=== PATIENT | female | born 1950 | race Caucasian/White ===

== ENCOUNTER 2017-04-16 10:04 | Emergency (ER) | payer MEDICARE, OTHER ==
[2017-04-16 10:15] VITALS: BP 159/94
[2017-04-16] MEDS ORDERED: Albuterol/Ipratropium 3.0-0.5 MG/3 ML Neb Soln NEB ONE (10:32)
--- NOTE | 2017-04-16 10:35 | EDM.PDOC ---
ED HPI GENERAL MEDICAL PROBLEM - General Chief Complaint: Respiratory Problem Stated Complaint: FLU SX Time Seen by Provider: 04/16/17 10:24 Source of Information: Reports: Patient, RN Notes Reviewed - History of Present Illness INITIAL COMMENTS - FREE TEXT/NARRATIVE: 66-year-old female comes in with cough, difficulty breathing. She does have history of COPD. She does smoke. She first became ill about 2 weeks ago his cough congestion sore throat. The cough is continued and is currently productive of colored phlegm. No current fever. She still does have some nasal and sinus congestion as well. She currently is on prednisone 20 mg twice a day. Chest Pain Score (Numeric/FACES): 9 - Related Data Allergies Allergy/AdvReac Type Severity Reaction Status Date / Time celecoxib [From Celebrex] Allergy Itching Verified 01/03/15 13:08 cephalexin monohydrate Allergy Hives Verified 01/03/15 13:08 [From Keflex] Penicillins Allergy Seizure Verified 01/03/15 13:08 Home Meds: Home Meds Acetaminophen with Codeine [Tylenol with Codeine #3 Tablet] 1 tab PO ASDIRECTED PRN 06/01/14 [History] Aspirin [Children's Aspirin] 81 mg PO DAILY 06/01/14 [History] predniSONE [Prednisone] 2 tab PO BID 06/01/14 [History] Acetaminophen with Codeine [Tylenol with Codeine #3 Tablet] 1 each PO Q8HR PRN # 14 tablet 04/16/17 [Rx] Doxycycline [Vibramycin] 100 mg PO BID #20 tab 04/16/17 [Rx] LORazepam 0.5 mg PO DAILY 04/16/17 [History] Metoprolol Tartrate 25 mg PO BID 04/16/17 [History] Past Medical History Other HEENT History: uses reading glasses Cardiovascular History: Reports: Hypertension Other Cardiovascular History: currently monitoring HTN--not on meds Respiratory History: Reports: Asthma, COPD Neurological History: Reports: Migraines Hematologic History: Reports: Blood Transfusion(s) Other Oncologic History: had "sore" removed from L) breast and was told it was cancerous, later found out it was not cancer. - Past Surgical History GI Surgical History: Reports: Appendectomy, Cholecystectomy Female Surgical History: Reports: Hysterectomy Other Musculoskeletal Surgeries/Procedures:: carparal tunnel surgery Social & Family History - Family History Family Medical History: Noncontributory - Tobacco Use Smoking Status *Q: Current Every Day Smoker Years of Tobacco use: 41 Packs/Tins Daily: 0.5 - Caffeine Use Caffeine Use: Reports: Coffee, Soda - Alcohol Use Days Per Week of Alcohol Use: 0 - Recreational Drug Use Recreational Drug Use: No ED ROS GENERAL - Review of Systems Review Of Systems: See Below Constitutional: Reports: Fever (No current fever), Chills HEENT: Reports: Rhinitis, Sinus Problem (Continue nasal and sinus congestion and drainage), Throat Pain Respiratory: Reports: Shortness of Breath (Chronically), Pleuritic Chest Pain, Cough, Sputum Cardiovascular: Reports: Chest Pain (Colored with coughing) GI/Abdominal: Denies: Abdominal Pain, Diarrhea, Vomiting Musculoskeletal: Reports: No Symptoms Skin: Reports: No Symptoms Neurological: Reports: No Symptoms ED EXAM, GENERAL - Physical Exam Exam: See Below General Appearance: Alert, Mild Distress Eye Exam: Bilateral Eye: PERRL Throat/Mouth: Normal Inspection Head: Atraumatic Neck: Supple, Full Range of Motion Respiratory/Chest: No Respiratory Distress, Lungs Clear, Normal Breath Sounds Cardiovascular: Regular Rate, Rhythm GI/Abdominal: Soft, Non-Tender Back Exam: No: CVA Tenderness (L), CVA Tenderness (R) Extremities: Normal Inspection, Normal Range of Motion Neurological: Alert, Oriented, No Motor/Sensory Deficits Skin Exam: Warm, Dry, Normal Color Course - Vital Signs Last Recorded V/S: Last Vital Signs Temp 97.1 F 04/16/17 10:11 Pulse 76 04/16/17 10:11 Resp 18 04/16/17 10:11 BP 159/94 H 04/16/17 10:11 Pulse Ox 91 L 04/16/17 10:32 - Orders/Labs/Meds Orders: Active Orders 24 hr Category Date Time Status RT Aerosol Therapy [RC] ASDIRECTED Care 04/16/17 10:32 Active Meds: Medications Discontinued Medications Generic Name Dose Route Start Last Admin Trade Name Freq PRN Reason Stop Dose Admin Albuterol/Ipratropium 3 ml 04/16/17 10:32 04/16/17 10:50 Duoneb 3.0-0.5 Mg/3 Ml NEB 04/16/17 10:33 3 ml ONETIME ONE Administration - Re-Assessments/Exams Free Text/Narrative Re-Assessment/Exam: 04/16/17 12:14. Chest x-ray looks fine. We'll start on doxycycline 100 mg twice a day. Discharge instructions as documented. Departure - Departure Time of Disposition: 11:17 Disposition: Home, Self-Care 01 Condition: Fair Clinical Impression: COPD exacerbation - Discharge Information Prescriptions: Acetaminophen with Codeine [Tylenol with Codeine #3 Tablet] 1 each PO Q8HR PRN # 14 tablet PRN Reason: Cough Doxycycline [Vibramycin] 100 mg PO BID #20 tab Instructions: Chronic Obstructive Pulmonary Disease Exacerbation, [id number] Referrals: Francis Yeung Jr, MD [Primary Care Provider] - Forms: ED Department Discharge Additional Instructions: Work hard to stop smoking, vaporizer or steam as needed, doxycycline antibiotic 100 mg twice daily for 10 days, Tylenol with codeine if needed for severe cough , see Dr. Yeung early next week as planned - My Orders Last 24 Hours: My Active Orders 04/16/17 10:32 RT Aerosol Therapy [RC] ASDIRECTED - Assessment/Plan Last 24 Hours: My Active Orders 04/16/17 10:32 RT Aerosol Therapy [RC] ASDIRECTED
--- NOTE | 2017-04-16 11:00 | CR ---
Chest: Two views of the chest were obtained. Comparison: Prior chest x-ray of 12/02/14. Heart is enlarged. Pulmonary vessels are mildly congested. Lungs are hyperinflated compatible with emphysematous change. Mild disc space narrowing is scattered within the thoracic spine with minimal endplate osteophytes. Minimal scoliosis is noted. Osteopenia is present. Impression: 1. Cardiomegaly with mild pulmonary vascular congestion. 2. Emphysematous change and other incidental findings. Diagnostic code #3
== END 2017-04-16 11:25 | disposition home or self-care (01) ==
LOC: JD.ED 10:04
DX: J44.1 Chronic obstructive pulmonary disease with (acute) exacerbation (principal); I10 Essential (primary) hypertension; F17.210 Nicotine dependence, cigarettes, uncomplicated; Z79.82 Long term (current) use of aspirin; Z79.899 Other long term (current) drug therapy; Z88.0 Allergy status to penicillin; Z88.1 Allergy status to other antibiotic agents
CPT/HCPCS: 71046; 71046-26; 94640; 99283; 99284-25

== ENCOUNTER 2019-11-05 13:52 | Emergency (ER) | payer MEDICARE, OTHER ==
[2019-11-05] MEDS ORDERED: Sodium Chloride 0.9% 10 ML Syringe FLUSH PRN ×2 (14:27→15:52)
[2019-11-05] MEDS ORDERED: Ondansetron 4 MG/2 ML SDV IVPUSH ONE (14:31)
[2019-11-05] MEDS ORDERED: Sodium Chloride 0.9% 1,000 ML IV STA (14:31)
--- NOTE | 2019-11-05 15:28 | EDM.PDOC ---
<Gavino Contreras - Last Filed: 11/05/19 18:51> ED HPI GENERAL MEDICAL PROBLEM - General Chief Complaint: Abdominal Pain Stated Complaint: ABDOMINAL PAIN Time Seen by Provider: 11/05/19 14:17 - Related Data Allergies Allergy/AdvReac Type Severity Reaction Status Date / Time cephalexin monohydrate Allergy Intermediate Hives Verified 11/05/19 16:13 [From Keflex] celecoxib [From Celebrex] Allergy Mild Itching Verified 11/05/19 16:13 Penicillins AdvReac Severe Seizure Verified 11/05/19 14:15 Home Meds: Home Meds Aspirin [Children's Aspirin] 81 mg PO DAILY 06/01/14 [History] predniSONE [Prednisone] 2 tab PO BID 06/01/14 [History] Acetaminophen with Codeine [Tylenol with Codeine #3 Tablet] 1 each PO Q8HR PRN #14 tablet 04/16/17 [Rx] LORazepam 0.5 mg PO DAILY 04/16/17 [History] Metoprolol Tartrate 25 mg PO BID 04/16/17 [History] Albuterol Sulfate [Proventil Hfa] 2 puff INH ASDIRECTED 11/05/19 [History] Course - Re-Assessments/Exams Free Text/Narrative Re-Assessment/Exam: 11/05/19 17:32. Assumed care about 35 minutes ago form THAD Garvey due to finding of Leaking abd aortic aneurysm. I agree with her hx and exam as documented. Current BP 138/86. Heart rate 64.Hgb 13.6, other labs as documented. Pt states her pain started around noon 5 hrs ago R hip and than started having abd pain radiating to her back. Hx of Htn, and also long standing smoking hx. She likely does have some COPD. She has had 0.5 mg dilaudid IV for pain, pain was quite severe at time of my eval, have ordered another 0.5 mg dilaudid IV. She is requesting to be transferred to [facility]. We have called for the [place] [facility] to come out and it is my understanding that they are expecting to be here in about 45 minutes. 17:50. I visited with Dr Andersen, Vascular Surgeon, [facility] who does accept patient in transfer. They will take her to the [place] ED, Dr Moriah zaman, ED Phys also aware. CT has been pushed to [place]. 11/05/19 18:25. [place] [facility] here, BP about 142/64, 64. Resting more comfortably after 2nd dose dilaudid. 11/05/19 18:52 Departure - Departure Time of Disposition: 17:40 Disposition: DC/Tfer to Acute Hospital 02 Condition: Serious Clinical Impression: Leaking abdominal aortic aneurysm - Discharge Information Referrals: Francis Yeung Jr, MD [Primary Care Provider] - Forms: ED Department Discharge <Madina Hernandez - Last Filed: 11/05/19 19:34> ED HPI GENERAL MEDICAL PROBLEM - General Source of Information: Reports: Patient History Limitations: Reports: No Limitations - History of Present Illness INITIAL COMMENTS - FREE TEXT/NARRATIVE: Patient is a 69-year-old female presenting to the emergency department with complaints of lower abdominal pain, diarrhea, nausea, right low back pain, frequency of urination, and generalized weakness. States symptoms began this morning. Pain began in her right lower quadrant abdomen near her hip, however since that time it is spread to her bilateral lower abdomen. She has had a number of episodes of watery diarrhea. She denies any blood in her stool. She is feeling quite nauseous but denies emesis. She has felt chilled but denies known fever. States last evening she felt well. She c/o of frequency of urination and right low back pain also started this morning. Patient denies a history of diverticulitis. She has had a previous appendectomy and cholecystectomy. Patient does have a history of COPD and continues to smoke a half a pack per day. She denies falling recently, but states she has come close a number of occasions this morning due to her generalized weakness. Lower Abdomen Pain Score (Numeric/FACES): 9 Past Medical History Other HEENT History: uses reading glasses Cardiovascular History: Reports: Hypertension Other Cardiovascular History: currently monitoring HTN--is on metoprolol Respiratory History: Reports: Asthma, COPD Neurological History: Reports: Migraines Psychiatric History: Reports: Anxiety Endocrine/Metabolic History: Reports: Other (See Below) Other Endocrine/Metabolic History: borderline diabetes Hematologic History: Reports: Blood Transfusion(s) Other Oncologic History: had "sore" removed from L) breast and was told it was cancerous, later found out it was not cancer. - Past Surgical History GI Surgical History: Reports: Appendectomy, Cholecystectomy Female Surgical History: Reports: Hysterectomy Other Musculoskeletal Surgeries/Procedures:: carparal tunnel surgery Social & Family History - Family History Family Medical History: Noncontributory - Tobacco Use Smoking Status *Q: Current Every Day Smoker Years of Tobacco use: 50 Packs/Tins Daily: 0.5 - Caffeine Use Caffeine Use: Reports: Coffee, Soda - Recreational Drug Use Recreational Drug Use: No ED ROS GENERAL - Review of Systems Review Of Systems: See Below Constitutional: Reports: Chills, Weakness, Decreased Appetite. Denies: Fever HEENT: Reports: No Symptoms Respiratory: Reports: No Symptoms. Denies: Shortness of Breath, Cough Cardiovascular: Reports: No Symptoms. Denies: Chest Pain, Edema, Lightheadedness, Syncope Endocrine: Reports: No Symptoms GI/Abdominal: Reports: Abdominal Pain (bilateral low abdominal pain), Diarrhea, Nausea. Denies: Vomiting : Reports: No Symptoms Musculoskeletal: Reports: Back Pain (right low back) Skin: Reports: No Symptoms Neurological: Reports: No Symptoms. Denies: Dizziness, Headache Psychiatric: Reports: No Symptoms Hematologic/Lymphatic: Reports: No Symptoms Immunologic: Reports: No Symptoms ED EXAM, GI/ABD - Physical Exam Exam: See Below General Appearance: Alert, WD/WN, No Apparent Distress Respiratory/Chest: No Respiratory Distress, Lungs Clear, Normal Breath Sounds, No Accessory Muscle Use, Chest Non-Tender Cardiovascular: Normal Peripheral Pulses, Regular Rate, Rhythm, No Edema, No Gallop, No JVD, No Murmur, No Rub GI/Abdominal Exam: Normal Bowel Sounds, Soft, No Organomegaly, No Distention, No Abnormal Bruit, No Mass, Pelvis Stable, Tender (RLQ and LLQ tenderness). No: Guarding, Rigid Extremities: Normal Inspection, Normal Range of Motion, Non-Tender, Normal Capillary Refill, No Pedal Edema Neurological: Alert, Oriented, CN II-XII Intact, Normal Cognition, Normal Gait, Normal Reflexes, No Motor/Sensory Deficits Psychiatric: Normal Affect, Normal Mood Skin Exam: Warm, Dry, Intact, Normal Color, No Rash Course - Vital Signs Last Recorded V/S: Last Vital Signs Temp 97.1 F 11/05/19 17:41 Pulse 62 11/05/19 17:46 Resp 16 11/05/19 17:46 BP 138/86 11/05/19 17:46 Pulse Ox 99 11/05/19 17:46 - Orders/Labs/Meds Orders: Active Orders 24 hr Category Date Time Status CULTURE BLOOD [BC] Stat Lab 11/05/19 14:55 Received CULTURE BLOOD [BC] Stat Lab 11/05/19 15:04 Received STOOL CULTURE/SHIGA TOXIN [MREF] Stat Lab 11/05/19 15:10 Received Blood Culture x2 Reflex Set [OM.PC] Stat Oth 11/05/19 14:27 Ordered Peripheral IV Insertion Adult [OM.PC] Stat Oth 11/05/19 14:27 Ordered Labs: Laboratory Tests 11/05/19 11/05/19 11/05/19 Range/Units 14:20 14:20 14:20 WBC 21.17 H (3.98-10.04) K/mm3 RBC 4.63 (3.98-5.22) M/mm3 Hgb 13.6 D (11.2-15.7) gm/dl Hct 43.1 (34.1-44.9) % MCV 93.1 D (79.4-94.8) fl MCH 29.4 (25.6-32.2) pg MCHC 31.6 L (32.2-35.5) g/dl RDW Std Deviation 47.5 H (36.4-46.3) fL Plt Count 181 L (182-369) K/mm3 MPV 11.6 (9.4-12.3) fl Neut % (Auto) 71.0 (34.0-71.1) % Lymph % (Auto) 16.7 L (19.3-51.7) % Grady % (Auto) 11.0 (4.7-12.5) % Eos % (Auto) 0.2 L (0.7-5.8) Baso % (Auto) 0.2 (0.1-1.2) % Neut # (Auto) 15.03 H (1.56-6.13) K/mm3 Lymph # (Auto) 3.54 (1.18-3.74) K/mm3 Grady # (Auto) 2.33 H (0.24-0.36) K/mm3 Eos # (Auto) 0.05 (0.04-0.36) K/mm3 Baso # (Auto) 0.04 (0.01-0.08) K/mm3 Manual Slide Review Abnormal smear Sodium 141 (136-145) mEq/L Potassium 3.9 (3.5-5.1) mEq/L Chloride 103 (98-107) mEq/L Carbon Dioxide 28 (21-32) mEq/L Anion Gap 13.9 (5-15) BUN 11 (7-18) mg/dL Creatinine 1.0 (0.55-1.02) mg/dL Est Cr Clr Drug Dosing 40.07 mL/min Estimated GFR (MDRD) 55 (>60) mL/min BUN/Creatinine Ratio 11.0 L (14-18) Glucose 165 H (80-115) mg/dL Lactic Acid (0.4-2.0) mmol/L Calcium 8.8 (8.5-10.1) mg/dL Magnesium (1.8-2.4) mg/dl Total Bilirubin 0.4 (0.2-1.0) mg/dL AST 13 L (15-37) U/L ALT 11 L (14-59) U/L Alkaline Phosphatase 43 L (46-116) U/L C-Reactive Protein 0.2 (<1.0) mg/dL Total Protein 6.5 (6.4-8.2) g/dl Albumin 3.4 (3.4-5.0) g/dl Globulin 3.1 gm/dL Albumin/Globulin Ratio 1.1 (1-2) Lipase 117 (73-393) U/L Urine Color (Yellow) Urine Appearance (Clear) Urine pH (5.0-8.0) Ur Specific [place] (1.005-1.030) Urine Protein (Negative) Urine Glucose (UA) (Negative) Urine Ketones (Negative) Urine Occult Blood (Negative) Urine Nitrite (Negative) Urine Bilirubin (Negative) Urine Urobilinogen (0.2-1.0) Ur Leukocyte Esterase (Negative) U Hyaline Cast (Auto) (0-5) /lpf Urine RBC (0-5) /hpf Urine WBC (0-5) /hpf Ur Squamous Epith Cells (0-5) /hpf Urine Bacteria (FEW) /hpf Urine Mucus (FEW) /hpf C.difficile [id number]-[id number] C. difficile Tox (PCR) SARS Virus RNA (PCR) (NEGATIVE) 09/11/1511/05/19 11/05/19 Range/Units 14:20 14:55 15:10 WBC (3.98-10.04) K/mm3 RBC (3.98-5.22) M/mm3 Hgb (11.2-15.7) gm/dl Hct (34.1-44.9) % MCV (79.4-94.8) fl MCH (25.6-32.2) pg MCHC (32.2-35.5) g/dl RDW Std Deviation (36.4-46.3) fL Plt Count (182-369) K/mm3 MPV (9.4-12.3) fl Neut % (Auto) (34.0-71.1) % Lymph % (Auto) (19.3-51.7) % Grady % (Auto) (4.7-12.5) % Eos % (Auto) (0.7-5.8) Baso % (Auto) (0.1-1.2) % Neut # (Auto) (1.56-6.13) K/mm3 Lymph # (Auto) (1.18-3.74) K/mm3 Grady # (Auto) (0.24-0.36) K/mm3 Eos # (Auto) (0.04-0.36) K/mm3 Baso # (Auto) (0.01-0.08) K/mm3 Manual Slide Review Sodium (136-145) mEq/L Potassium (3.5-5.1) mEq/L Chloride (98-107) mEq/L Carbon Dioxide (21-32) mEq/L Anion Gap (5-15) BUN (7-18) mg/dL Creatinine (0.55-1.02) mg/dL Est Cr Clr Drug Dosing mL/min Estimated GFR (MDRD) (>60) mL/min BUN/Creatinine Ratio (14-18) Glucose (80-115) mg/dL Lactic Acid 2.4 H* (0.4-2.0) mmol/L Calcium (8.5-10.1) mg/dL Magnesium 1.9 (1.8-2.4) mg/dl Total Bilirubin (0.2-1.0) mg/dL AST (15-37) U/L ALT (14-59) U/L Alkaline Phosphatase (46-116) U/L C-Reactive Protein (<1.0) mg/dL Total Protein (6.4-8.2) g/dl Albumin (3.4-5.0) g/dl Globulin gm/dL Albumin/Globulin Ratio (1-2) Lipase (73-393) U/L Urine Color (Yellow) Urine Appearance (Clear) Urine pH (5.0-8.0) Ur Specific [place] (1.005-1.030) Urine Protein (Negative) Urine Glucose (UA) (Negative) Urine Ketones (Negative) Urine Occult Blood (Negative) Urine Nitrite (Negative) Urine Bilirubin (Negative) Urine Urobilinogen (0.2-1.0) Ur Leukocyte Esterase (Negative) U Hyaline Cast (Auto) (0-5) /lpf Urine RBC (0-5) /hpf Urine WBC (0-5) /hpf Ur Squamous Epith Cells (0-5) /hpf Urine Bacteria (FEW) /hpf Urine Mucus (FEW) /hpf C.difficile [id number]-[id number] Presumptive negative C. difficile Tox (PCR) Negative SARS Virus RNA (PCR) (NEGATIVE) 11/05/19 11/05/19 Range/Units 15:12 15:50 WBC (3.98-10.04) K/mm3 RBC (3.98-5.22) M/mm3 Hgb (11.2-15.7) gm/dl Hct (34.1-44.9) % MCV (79.4-94.8) fl MCH (25.6-32.2) pg MCHC (32.2-35.5) g/dl RDW Std Deviation (36.4-46.3) fL Plt Count (182-369) K/mm3 MPV (9.4-12.3) fl Neut % (Auto) (34.0-71.1) % Lymph % (Auto) (19.3-51.7) % Grady % (Auto) (4.7-12.5) % Eos % (Auto) (0.7-5.8) Baso % (Auto) (0.1-1.2) % Neut # (Auto) (1.56-6.13) K/mm3 Lymph # (Auto) (1.18-3.74) K/mm3 Grady # (Auto) (0.24-0.36) K/mm3 Eos # (Auto) (0.04-0.36) K/mm3 Baso # (Auto) (0.01-0.08) K/mm3 Manual Slide Review Sodium (136-145) mEq/L Potassium (3.5-5.1) mEq/L Chloride (98-107) mEq/L Carbon Dioxide (21-32) mEq/L Anion Gap (5-15) BUN (7-18) mg/dL Creatinine (0.55-1.02) mg/dL Est Cr Clr Drug Dosing mL/min Estimated GFR (MDRD) (>60) mL/min BUN/Creatinine Ratio (14-18) Glucose (80-115) mg/dL Lactic Acid (0.4-2.0) mmol/L Calcium (8.5-10.1) mg/dL Magnesium (1.8-2.4) mg/dl Total Bilirubin (0.2-1.0) mg/dL AST (15-37) U/L ALT (14-59) U/L Alkaline Phosphatase (46-116) U/L C-Reactive Protein (<1.0) mg/dL Total Protein (6.4-8.2) g/dl Albumin (3.4-5.0) g/dl Globulin gm/dL Albumin/Globulin Ratio (1-2) Lipase (73-393) U/L Urine Color Yellow (Yellow) Urine Appearance Clear (Clear) Urine pH 6.0 (5.0-8.0) Ur Specific [place] > or = 1.030 (1.005-1.030) Urine Protein 2+ H (Negative) Urine Glucose (UA) Negative (Negative) Urine Ketones Negative (Negative) Urine Occult Blood Negative (Negative) Urine Nitrite Negative (Negative) Urine Bilirubin 1+ H (Negative) Urine Urobilinogen 0.2 (0.2-1.0) Ur Leukocyte Esterase Negative (Negative) U Hyaline Cast (Auto) 30-40 H (0-5) /lpf Urine RBC 0-5 (0-5) /hpf Urine WBC 0-5 (0-5) /hpf Ur Squamous Epith Cells 0-5 (0-5) /hpf Urine Bacteria Few (FEW) /hpf Urine Mucus Few (FEW) /hpf C.difficile 027-NAP1-B1 C. difficile Tox (PCR) SARS Virus RNA (PCR) Negative (NEGATIVE) Meds: Medications Discontinued Medications Generic Name Dose Route Start Last Admin Trade Name Freq PRN Reason Stop Dose Admin Hydromorphone HCl 0.5 mg 11/05/19 16:40 11/05/19 16:45 Dilaudid IVPUSH 11/05/19 16:41 0.5 mg ONETIME ONE Administration Hydromorphone HCl 0.5 mg 11/05/19 17:20 11/05/19 17:25 Dilaudid IVPUSH 11/05/19 17:21 0.5 mg ONETIME ONE Administration Sodium Chloride 1,000 mls @ 999 mls/hr 11/05/19 14:31 11/05/19 15:45 Normal Saline IV 11/05/19 15:31 999 mls/hr NOW STA Infusion Levofloxacin/Dextrose 750 mg/ 150 mls @ 100 mls/hr 11/05/19 16:31 11/05/19 16:50 Premix IV 11/05/19 18:00 100 mls/hr ONETIME ONE Administration Iopamidol 100 ml 11/05/19 15:52 11/05/19 16:46 Isovue-300 (61%) IVPUSH 11/05/19 15:53 100 ml ONETIME ONE Administration Ketorolac Tromethamine 30 mg 11/05/19 15:58 11/05/19 16:03 Toradol IVPUSH 11/05/19 15:59 30 mg ONETIME ONE Administration Metoclopramide HCl 5 mg 11/05/19 17:28 11/05/19 17:35 Reglan IVPUSH 11/05/19 17:29 5 mg ONETIME ONE Administration Ondansetron HCl 4 mg 11/05/19 14:31 11/05/19 15:05 Zofran IVPUSH 11/05/19 14:32 4 mg ONETIME ONE Administration Sodium Chloride 10 ml 11/05/19 14:27 11/05/19 14:20 Saline Flush FLUSH 10 ml ASDIRECTED PRN Administration Keep Vein Open Sodium Chloride 10 ml 11/05/19 15:52 11/05/19 16:46 Saline Flush FLUSH 10 ml ONETIME PRN Administration Keep Vein Open - Re-Assessments/Exams Free Text/Narrative Re-Assessment/Exam: Patient is a 69-year-old female presenting to the emergency department with complaints of lower abdominal pain, watery diarrhea, nausea, and generalized weakness that began this morning. She denies a history of diverticulitis. States she is had her gallbladder and appendix removed in the past. Denies a known fever, but has felt chilled this morning. Denies any syncopal episodes or dizziness, however she has been weak and felt like she may fall a couple times. I have ordered a CBC, CMP, CRP, lipase, blood cultures x2, urinalysis, lactic acid, 1 hour COVID test, stool WBC, stool culture, C. difficile, and a CT scan of the abdomen pelvis with contrast. 11/05/19 1545 Hematology was significant for WBC elevated at 21.17 and lactic acid was found to be elevated at 2.4. This rules her in for severe sepsis. Her blood pressures have not been hypotensive, however they have been on the low end of normal averaging in the 90s systolic over 60s diastolic. I have ordered a 500 mill bolus of normal saline. Urine is going to be collected via straight catheterization as patient has not voided thus far. 11/05/19 1608 I was notified by Eugenie SCHULTZ the patient is not able to tolerate oral contrast any further. We will complete abdomen CT with IV contrast only. Patient will go to CT now. 11/05/19 1630 I have ordered Levaquin for broad-spectrum antibiotics. Patient is allergic to cephalexin and penicillin. This will cover for a possible diverticulitis versus urosepsis. 11/05/19 17:00 Phone call received from Dr. Lopez, radiologist. He verbalized the patient appears to have a leaking abdominal aortic aneurysm. Spoke with Dr. Diane LITTLE. He will assume care of the patient given her diagnosis. Her vital signs remained stable. Sepsis Event Note (ED) - Evaluation Sepsis Screening Result: No Definite Risk - Focused Exam Vital Signs: Vital Signs Temp Pulse Resp BP Pulse Ox 11/05/19 17:46 62 16 138/86 99 11/05/19 17:41 97.1 F 68 16 143/67 H 100 11/05/19 14:10 96.1 F L 57 L 23 H 98/60 88 L - My Orders Last 24 Hours: My Active Orders 11/05/19 14:27 Blood Culture x2 Reflex Set [OM.PC] Stat Peripheral IV Insertion Adult [OM.PC] Stat 11/05/19 14:55 CULTURE BLOOD [BC] Stat 11/05/19 15:04 CULTURE BLOOD [BC] Stat 11/05/19 15:10 STOOL CULTURE/SHIGA TOXIN [MREF] Stat - Assessment/Plan Last 24 Hours: My Active Orders 11/05/19 14:27 Blood Culture x2 Reflex Set [OM.PC] Stat Peripheral IV Insertion Adult [OM.PC] Stat 11/05/19 14:55 CULTURE BLOOD [BC] Stat 11/05/19 15:04 CULTURE BLOOD [BC] Stat 11/05/19 15:10 STOOL CULTURE/SHIGA TOXIN [MREF] Stat
--- NOTE | 2019-11-05 15:41 | CR ---
Chest: Portable chest x-ray was obtained. Comparison: Previous chest x-ray of 12/02/14. Heart is slightly enlarged. Tortuous thoracic aorta seen. Lungs are clear. Bony structures are grossly intact. Impression: 1. Nothing acute is seen on portable chest x-ray. Diagnostic code #2 This report was dictated in MDT
[2019-11-05] MEDS ORDERED: Iopamidol 612 MG/ML 100 ML Bottle IVPUSH ONE (15:52)
[2019-11-05] MEDS ORDERED: Ketorolac 30 MG/ML SDV IVPUSH ONE (15:58)
[2019-11-05] MEDS ORDERED: Levofloxacin/Dextrose 5%-Water 750 MG in Premix Bag 1 BAG IV ONE (16:31)
[2019-11-05] MEDS ORDERED: HYDROmorphone 0.5 MG/0.5 ML Syringe IVPUSH ONE ×2 (16:40→17:20)
--- NOTE | 2019-11-05 17:07 | CT ---
CT abdomen and pelvis Technique: Multiple axial sections were obtained from above the dome of the diaphragm inferiorly through the pubic symphysis. Intravenous contrast was utilized. Small amount of oral contrast has also been given. Findings: Visualized lung bases show nothing acute. Liver contains no focal abnormality. Spleen appears within normal limits. Adrenal glands show no nodule. Pancreas shows no discrete abnormality. Abdominal aortic aneurysm is seen within the mid and distal aorta. Intraluminal thrombus is seen. There is soft tissue density around this aorta which is highly suspicious for leaking aneurysm which is most likely anterior as there is a break in the intimal calcifications being seen in this location. This aneurysm has an AP dimension of 6.0 cm. Atherosclerotic calcifications are seen within the iliac vessels. No retroperitoneal adenopathy is seen although subtler areas of adenopathy could be missed due to the retroperitoneal blood. No pelvic mass or adenopathy is seen. Small amount of blood is noted within the dependent pelvis. Delayed images shows contrast within the bladder. Contrast is noted within nondilated ureters. Bone window settings show scattered degenerative change without acute abnormality. Impression: 1. Soft tissue density around an abdominal aortic aneurysm which is felt compatible with leaking aneurysm as noted above. 2. Other findings believed to be incidental as noted above. Note: Results were discussed with referring healthcare provider by phone around time 6 PM. Diagnostic code #5 This report was dictated in MDT
[2019-11-05] MEDS ORDERED: Metoclopramide 10 MG/2 ML SDV IVPUSH ONE (17:28)
[2019-11-05 17:47] VITALS: BP 138/86; PULSE 62
== END 2019-11-05 18:18 ==
LOC: JD.ED 13:52
DX: I71.4 Abdominal aortic aneurysm, without rupture (principal); I10 Essential (primary) hypertension; F17.210 Nicotine dependence, cigarettes, uncomplicated; J44.9 Chronic obstructive pulmonary disease, unspecified; F41.9 Anxiety disorder, unspecified; Z88.1 Allergy status to other antibiotic agents; Z88.0 Allergy status to penicillin; Z79.82 Long term (current) use of aspirin; Z79.899 Other long term (current) drug therapy; Z20.828 Contact with and (suspected) exposure to other viral communicable diseases
CPT/HCPCS: 36415; 71045; 71045-26; 74177; 74177-26; 80053; 81001; 83605; 83690; 83735; 85025; 86140; 87040; 87045; 87046; 87493; 87899; 89055; 96361; 96365; 96375; 96376; 99285-25; J1170; J1885; J1956; J2405; J2765; J7030; Q9967; U0002

== ENCOUNTER 2022-12-15 08:42 | Inpatient (IN) | payer MEDICARE ==
[2022-12-15] MEDS ORDERED: Acetaminophen 325 MG Tab PO ONE (09:27)
[2022-12-15] MEDS ORDERED: Metoclopramide 10 MG/2 ML SDV IVPUSH ONE (09:27)
[2022-12-15] MEDS ORDERED: Dextrose 5%-0.9% NaCl 1,000 ML IV SCH (09:30)
[2022-12-15 10:13] LABS: BASOPHILS PERCENT AUTO 0.2 % (0.0-1.0); EOSINOPHILS PERCENT AUTO 0.1 % (0.0-6.0); HEMATOCRIT 42.8 % (37.0-47.0); HEMOGLOBIN 14.3 gm/dl (12.0-16.0); IMMATURE GRAN ABSOLUTE AUTO 0.05 K/mm3 (0.00-0.05); IMMATURE GRAN PERCENT AUTO 0.4 % (0.0-0.4); LYMPHOCYTES ABSOLUTE AUTO 1.1 K/mm3 (1.0-4.8); LYMPHOCYTES PERCENT AUTO 8.7 % (24.0-44.0); MEAN CORPUSCULAR HEMOGLOBIN 30.8 pg (28.0-32.0); MEAN CORPUSCULAR HGB CONC 33.4 g/dl (32.0-36.0); MEAN CORPUSCULAR VOLUME 92.2 fl (83.0-99.0); MONOCYTES ABSOLUTE AUTO 0.8 K/mm3 (0.0-0.8); MONOCYTES PERCENT AUTO 5.9 % (0.0-8.0); NEUTROPHILS ABSOLUTE AUTO 11.2 K/mm3 (1.8-7.7); NEUTROPHILS PERCENT AUTO 84.7 % (41.0-71.0); PLATELET COUNT,PLT 136 K/mm3 (150-400); RED BLOOD CELL COUNT 4.64 M/mm3 (4.10-5.30); WHITE BLOOD CELL COUNT,WBC 13.17 K/mm3 (3.9-11.3)
[2022-12-15 10:14] LABS: O2 SATURATION ARTERIAL 93.4 % (96.0-97.0); PCO2 ARTERIAL 36.8 mmHg (35.0-45.0)
[2022-12-15 10:15] LABS: BASE EXCESS ARTERIAL 1.8 (-2-2.0); BICARBONATE,ARTERIAL 25.2 meq/L (22.0-26.0)
[2022-12-15 10:16] LABS: APPEARANCE,URINE CLEAR (Clear); BILIRUBIN,URINE NEGATIVE (Negative); COLOR,URINE YELLOW (Yellow); GLUCOSE,URINE NEGATIVE (Negative); KETONES,URINE NEGATIVE (Negative); LEUKOCYTE ESTERASE,URINE 1+ (Negative); NITRITE,URINE NEGATIVE (Negative); OCCULT BLOOD,URINE NEGATIVE (Negative); PH,URINE 5.5 (5.0-8.0); PROTEIN,URINE NEGATIVE (Negative); UROBILINOGEN,URINE 0.2 (0.2-1.0)
[2022-12-15 10:21] LABS: RBC,URINE 0-5 /hpf (0-5)
[2022-12-15 10:22] LABS: BACTERIA,URINE MODERATE /hpf (FEW); MUCUS,URINE FEW /hpf (FEW); SQUAMOUS EPITHELIAL CELLS,UR 0-5 /hpf (0-5)
[2022-12-15 10:29] LABS: INR 1.06; PROTHROMBIN TIME 11.3 SECONDS (9.7-12.0)
[2022-12-15 10:30] LABS: PTT,PARTIAL THROMBOPLSTIN TIME < 20.0 SECONDS (21.7-31.4)
[2022-12-15 10:59] LABS: A/G RATIO 1.1 (1-2); ALBUMIN 3.6 g/dl (3.4-5.0); ANION GAP 15.3 (5-15); BILIRUBIN TOTAL 0.7 mg/dL (0.2-1.0); C-REACTIVE PROTEIN 1.2 mg/dL (<1.0); CALCIUM 9.1 mg/dL (8.5-10.1); EST CRCL DRUG DOSING (CG) 39.53 mL/min; MAGNESIUM 1.3 mg/dL (1.8-2.4); POTASSIUM,K 3.3 mEq/L (3.5-5.1); PROTEIN TOTAL,TP 6.9 g/dl (6.4-8.2)
[2022-12-15 11:01] LABS: CORONAVIRUS COVID-19 NAA NEGATIVE (NEGATIVE); INFLUENZA A NAA NEGATIVE (NEGATIVE); RESPIRATORY SYNCYTIAL VIR NAA NEGATIVE (NEGATIVE)
[2022-12-15] MEDS ORDERED: Levofloxacin/Dextrose 5%-Water 750 MG in Premix Bag 1 BAG IV ONE (11:17)
[2022-12-15] MEDS ORDERED: Magnesium Sulfate/Water 4 GM in Premix Bag 1 BAG IV ONE (12:04)
[2022-12-15] MEDS ORDERED: oxyCODONE 5 MG Tab PO PRN (13:18)
[2022-12-15] MEDS ORDERED: Ondansetron 4 MG/2 ML SDV IVPUSH PRN (15:30)
[2022-12-15] MEDS: Sodium Chloride 0.9% 1,000 ML IV SCH (15:49)
[2022-12-15] MEDS: Potassium Chloride 10 MEQ in Premix Bag 1 BAG IV SCH ×2 (15:52→17:04)
[2022-12-15] MEDS: Nicotine 14 MG/24 Hr Patch TRDERM SCH (15:53)
[2022-12-15] MEDS: Acetaminophen 325 MG Tab PO PRN ×2 (16:00→21:46)
[2022-12-15] MEDS ORDERED: Potassium Bicarbonate/Cit Ac 10 MEQ Effervescent Tab PO ONE (17:20)
[2022-12-15] MEDS: Famotidine 20 MG Tab PO SCH (21:22)
[2022-12-15] MEDS: Albuterol 0.083% 2.5 MG/3 ML Neb Soln NEB PRN (21:28)
[2022-12-15] MEDS ORDERED: Sodium Chloride 0.9% 1,000 ML IV ONE ×2 (21:37→23:27)
[2022-12-16 00:08] LABS: LACTIC ACID 3.3 mmol/L (0.4-2.0)
[2022-12-16] MEDS: Sodium Chloride 0.9% 1,000 ML IV SCH ×3 (01:49→21:34)
[2022-12-16 03:22] LABS: BASOPHILS PERCENT AUTO 0.2 % (0.0-1.0); HEMATOCRIT 36.9 % (37.0-47.0); IMMATURE GRAN ABSOLUTE AUTO 0.06 K/mm3 (0.00-0.05); IMMATURE GRAN PERCENT AUTO 0.5 % (0.0-0.4); LYMPHOCYTES ABSOLUTE AUTO 0.6 K/mm3 (1.0-4.8); LYMPHOCYTES PERCENT AUTO 4.5 % (24.0-44.0); MEAN CORPUSCULAR HGB CONC 32.5 g/dl (32.0-36.0); MEAN PLATELET VOLUME 11.2 fl (9.4-12.3); MONOCYTES PERCENT AUTO 7.9 % (0.0-8.0); NEUTROPHILS ABSOLUTE AUTO 10.6 K/mm3 (1.8-7.7); NEUTROPHILS PERCENT AUTO 86.9 % (41.0-71.0); PLATELET COUNT,PLT 93 K/mm3 (150-400); RED BLOOD CELL COUNT 3.87 M/mm3 (4.10-5.30); WHITE BLOOD CELL COUNT,WBC 12.15 K/mm3 (3.9-11.3)
[2022-12-16 03:30] LABS: MEAN CORPUSCULAR VOLUME 95.3 fl (83.0-99.0)
[2022-12-16 03:42] LABS: A/G RATIO 0.9 (1-2); ALBUMIN 2.3 g/dl (3.4-5.0); ANION GAP 14.3 (5-15); BILIRUBIN TOTAL 0.8 mg/dL (0.2-1.0); BUN/CREATININE RATIO 22.7 (14-18); CALCIUM 7.8 mg/dL (8.5-10.1); CREATININE 1.1 mg/dL (0.55-1.02); EST CRCL DRUG DOSING (CG) 34.88 mL/min; MAGNESIUM 2.4 mg/dL (1.8-2.4); POTASSIUM,K 4.3 mEq/L (3.5-5.1); PROTEIN TOTAL,TP 4.9 g/dl (6.4-8.2)
[2022-12-16 04:08] LABS: SLIDE REVIEW ABNORMAL SMEAR
[2022-12-16] MEDS: Famotidine 20 MG Tab PO SCH ×2 (08:42→21:34)
[2022-12-16] MEDS: Nicotine 14 MG/24 Hr Patch TRDERM SCH (08:42)
[2022-12-16] MEDS: Albuterol 0.083% 2.5 MG/3 ML Neb Soln NEB PRN ×3 (08:54→19:17)
[2022-12-16 14:08] LABS: LACTIC ACID 3.5 mmol/L (0.4-2.0)
[2022-12-16] MEDS: Acetaminophen 325 MG Tab PO PRN (15:09)
[2022-12-16] MEDS ORDERED: traZODone 50 MG Tab PO ONE (19:59)
[2022-12-16] MEDS ORDERED: Temazepam 15 MG Cap PO PRN (22:45)
[2022-12-17] MEDS: Albuterol 0.083% 2.5 MG/3 ML Neb Soln NEB PRN ×5 (00:21→20:52)
[2022-12-17] MEDS: Acetaminophen 325 MG Tab PO PRN ×2 (03:49→14:06)
[2022-12-17 07:31] LABS: BASOPHILS PERCENT AUTO 0.1 % (0.0-1.0); HEMATOCRIT 33.4 % (37.0-47.0); HEMOGLOBIN 10.9 gm/dl (12.0-16.0); IMMATURE GRAN ABSOLUTE AUTO 0.11 K/mm3 (0.00-0.05); LYMPHOCYTES ABSOLUTE AUTO 0.6 K/mm3 (1.0-4.8); LYMPHOCYTES PERCENT AUTO 5.8 % (24.0-44.0); MEAN CORPUSCULAR HEMOGLOBIN 30.5 pg (28.0-32.0); MEAN CORPUSCULAR HGB CONC 32.6 g/dl (32.0-36.0); MEAN CORPUSCULAR VOLUME 93.6 fl (83.0-99.0); MEAN PLATELET VOLUME 11.2 fl (9.4-12.3); MONOCYTES ABSOLUTE AUTO 0.8 K/mm3 (0.0-0.8); MONOCYTES PERCENT AUTO 7.3 % (0.0-8.0); NEUTROPHILS ABSOLUTE AUTO 9.3 K/mm3 (1.8-7.7); NEUTROPHILS PERCENT AUTO 85.8 % (41.0-71.0); PLATELET COUNT,PLT 90 K/mm3 (150-400); RED BLOOD CELL COUNT 3.57 M/mm3 (4.10-5.30); WHITE BLOOD CELL COUNT,WBC 10.88 K/mm3 (3.9-11.3)
[2022-12-17 08:01] LABS: A/G RATIO 0.8 (1-2); ALBUMIN 2.3 g/dl (3.4-5.0); BILIRUBIN TOTAL 0.5 mg/dL (0.2-1.0); BUN/CREATININE RATIO 18.8 (14-18); CALCIUM 8.6 mg/dL (8.5-10.1); CREATININE 0.8 mg/dL (0.55-1.02); EST CRCL DRUG DOSING (CG) 47.97 mL/min; MAGNESIUM 1.9 mg/dL (1.8-2.4); PROTEIN TOTAL,TP 5.3 g/dl (6.4-8.2)
[2022-12-17 08:20] LABS: SLIDE REVIEW ABNORMAL SMEAR
[2022-12-17] MEDS ORDERED: traZODone 50 MG Tab PO PRN (08:49)
[2022-12-17] MEDS ORDERED: Meloxicam 7.5 MG Tab PO PRN (08:49)
[2022-12-17] MEDS ORDERED: LORazepam 1 MG Tab PO PRN (08:49)
[2022-12-17] MEDS ORDERED: Non-Formulary Medication 1 Each (Escitalopram 20 MG Tablet) PO SCH (09:00)
[2022-12-17] MEDS ORDERED: Potassium Chloride 10 MEQ Tab.ER PO SCH (09:00)
[2022-12-17] MEDS: Famotidine 20 MG Tab PO SCH ×2 (09:41→20:36)
[2022-12-17] MEDS: Metoprolol Tartrate 25 MG Tab PO SCH ×2 (09:42→20:35)
[2022-12-17] MEDS: Losartan 25 MG Tab PO SCH (09:42)
[2022-12-17] MEDS: Nicotine 14 MG/24 Hr Patch TRDERM SCH (09:43)
[2022-12-17] MEDS ORDERED: Levofloxacin/Dextrose 5%-Water 500 MG in Premix Bag 1 BAG IV SCH (10:00)
[2022-12-18 05:48] LABS: BASOPHILS PERCENT AUTO 0.1 % (0.0-1.0); EOSINOPHILS PERCENT AUTO 0.3 % (0.0-6.0); HEMATOCRIT 31.8 % (37.0-47.0); HEMOGLOBIN 10.6 gm/dl (12.0-16.0); IMMATURE GRAN ABSOLUTE AUTO 0.04 K/mm3 (0.00-0.05); IMMATURE GRAN PERCENT AUTO 0.5 % (0.0-0.4); LYMPHOCYTES ABSOLUTE AUTO 0.6 K/mm3 (1.0-4.8); MEAN CORPUSCULAR HEMOGLOBIN 30.5 pg (28.0-32.0); MEAN CORPUSCULAR HGB CONC 33.3 g/dl (32.0-36.0); MEAN CORPUSCULAR VOLUME 91.6 fl (83.0-99.0); MEAN PLATELET VOLUME 11.3 fl (9.4-12.3); MONOCYTES ABSOLUTE AUTO 0.7 K/mm3 (0.0-0.8); MONOCYTES PERCENT AUTO 8.2 % (0.0-8.0); NEUTROPHILS ABSOLUTE AUTO 7.4 K/mm3 (1.8-7.7); NEUTROPHILS PERCENT AUTO 83.9 % (41.0-71.0); PLATELET COUNT,PLT 88 K/mm3 (150-400); RED BLOOD CELL COUNT 3.47 M/mm3 (4.10-5.30); WHITE BLOOD CELL COUNT,WBC 8.82 K/mm3 (3.9-11.3)
[2022-12-18] MEDS: Albuterol 0.083% 2.5 MG/3 ML Neb Soln NEB PRN ×2 (06:32→09:14)
[2022-12-18 06:38] LABS: A/G RATIO 0.7 (1-2); ALBUMIN 2.1 g/dl (3.4-5.0); ANION GAP 9.8 (5-15); BILIRUBIN TOTAL 0.6 mg/dL (0.2-1.0); BUN/CREATININE RATIO 18.6 (14-18); CALCIUM 8.4 mg/dL (8.5-10.1); CREATININE 0.7 mg/dL (0.55-1.02); EST CRCL DRUG DOSING (CG) 54.82 mL/min; POTASSIUM,K 2.8 mEq/L (3.5-5.1); PROTEIN TOTAL,TP 5.2 g/dl (6.4-8.2)
[2022-12-18 06:46] LABS: SLIDE REVIEW ABNORMAL SMEAR
[2022-12-18] MEDS ORDERED: Potassium Chloride 20 MEQ Tab.ER PO SCH (09:00)
[2022-12-18] MEDS: Famotidine 20 MG Tab PO SCH (09:44)
[2022-12-18] MEDS: Losartan 25 MG Tab PO SCH (09:44)
[2022-12-18] MEDS: Metoprolol Tartrate 25 MG Tab PO SCH (09:44)
[2022-12-18] MEDS: Nicotine 14 MG/24 Hr Patch TRDERM SCH (09:45)
[2022-12-18 09:54] VITALS: BP 143/74; PULSE 88
[2022-12-18] MEDS ORDERED: Levofloxacin/Dextrose 5%-Water 750 MG in Premix Bag 1 BAG IV SCH (10:00)
[2022-12-18] MEDS ORDERED: Albuterol/Ipratropium 3.0-0.5 MG/3 ML Neb Soln NEB SCH (10:13)
[2022-12-18] MEDS ORDERED: guaiFENesin 600 MG Tab.ER PO SCH (10:15)
== END 2022-12-18 14:45 | disposition home or self-care (01) | DRG 193 ==
LOC: JD.ED 08:42 → JD.MS 12:01
PROVIDERS: ADMIT Internal Medicine; ATTEND Internal Medicine
DX: J18.9 Pneumonia, unspecified organism (principal); R09.02 Hypoxemia; J96.21 Acute and chronic respiratory failure with hypoxia; J44.9 Chronic obstructive pulmonary disease, unspecified; Z88.1 Allergy status to other antibiotic agents; R65.11 Systemic inflammatory response syndrome (SIRS) of non-infectious origin with acute organ dysfunction; E87.20 Acidosis, unspecified; J44.1 Chronic obstructive pulmonary disease with (acute) exacerbation; J44.0 Chronic obstructive pulmonary disease with (acute) lower respiratory infection; E87.6 Hypokalemia; Z66 Do not resuscitate; E83.42 Hypomagnesemia; E88.A Wasting disease (syndrome) due to underlying condition; F17.210 Nicotine dependence, cigarettes, uncomplicated; Z20.822 Contact with and (suspected) exposure to COVID-19; I10 Essential (primary) hypertension; G43.909 Migraine, unspecified, not intractable, without status migrainosus; F41.9 Anxiety disorder, unspecified; E11.9 Type 2 diabetes mellitus without complications; Z90.710 Acquired absence of both cervix and uterus; Z90.49 Acquired absence of other specified parts of digestive tract; Z88.0 Allergy status to penicillin; Z88.8 Allergy status to other drugs, medicaments and biological substances; Z91.018 Allergy to other foods; Z79.899 Other long term (current) drug therapy; Z79.51 Long term (current) use of inhaled steroids
CPT/HCPCS: 0241U; 36415; 36600; 71045; 80053; 81001; 82803; 83605; 83735; 83880; 84484; 85025; 85610; 85730; 86140; 87040; 87086; 87493; 93005; 94640; 94667; 94668; 94760; 94761; 93010; 96361; 96374; 99223; 99232; 99239; 99284-25; 99285; A9270-GY; J1956; J2405; J2765; J3475; J3480; J7030; J7042; J7620-GY